=== PATIENT | female | born 1945 | race Hispanic/Latino ===

== ENCOUNTER 2016-11-15 09:33 | Emergency (ER) | payer OTHER ==
[~2016-11-15] VITALS: Ht 147.3 cm; Wt 78.1 kg
[~2016-11-15 09:33] MED LIST: ADVAIR 250/501 DISK IH; ATENOLOL100 MG PO; CITALOPRAM HBR20 MG PO; CLARITIN10 MG PO; CLIMARA0.1 MG PO; COUMADIN,JANTOVE1 MG PO; COUMADIN2.5 MG PO; COZAAR100 MG PO; CRESTOR20 MG PO; ESTRADIOL1 MG PO; FLONASE16 G1 BOTH NARES; GABAPENTIN300 M1 PO; HCTZ; HYDROCHLOROTH12.5 M2 PO; HYDROXYZINE HCL25 MG PO; HYZAAR 100-11 TABLET PO; KLOR-CON 1010 ME1 PO; LEVOTHROID50 MCG PO; LEVOTHYROXINE25 MCG PO; LYRICA50 MG PO; MECLIZINE HCL25 MG PO; MELOXICAM7.5 MG PO; MIRALAX17 GM PO; NASONEX17 GM NS; NEXIUM40 MG PO; OMEPRAZOLE40 M1 PO; POTASSIUM CHLO10 ME3 PO; SERTRALINE HCL100 MG PO; SINGULAIR10 MG PO; SPIRIVA1 INHALATI IH; TRADJENTA5 MG PO; TRAMADOL HCL50 MG PO; ULTRAM50 MG PO; VALIUM5 MG PO; VENTOLIN HFA18 GM IH; VITAMIN D-32000 UNI2 PO; VITAMIN D50000 UNI1 PO; ZETIA10 MG PO; predniSONE PO
[2016-11-15 10:40] LABS: HEMATOCRIT 38.1 % (36.0-46.0); MCH 29.6 PG (29.0-34.0); MCHC 34.1 G/DL (30.0-36.0); MCV 86.8 FL (83-99); MEAN PLAT.VOLUME 10.8 uM^3 (9.5-12.4); PLATELET COUNT 188 K/uL (156-360); RBC DIS.WIDTH-CV 14.1 % (11.8-14.6); RED BLOOD COUNT 4.39 M/uL (3.80-5.20); WHITE BLOOD COUNT 8.8 K/uL (4.1-10.2)
[2016-11-15 10:53] LABS: CHLORIDE 100 mEq/L (99-109); POTASSIUM 3.8 mEq/L (3.7-5.4); SODIUM 136 mEq/L (136-147)
[2016-11-15 10:54] LABS: GLUCOSE 116 mg/dL (70-99)
[2016-11-15 10:56] LABS: ANION GAP 8 MEQ/L (2-14)
[2016-11-15 10:58] LABS: GFR ESTIMATE (CALCULATED) 36 mL/min/
[2016-11-15 10:59] LABS: UREA NITROGEN (BUN) 27 mg/dL (9-23)
[2016-11-15 11:41] LABS: ADD MIUA? YES; BILIRUBIN NEGATIVE; BLOOD NEGATIVE; GLUCOSE (STRIP) NEGATIVE; KETONES NEGATIVE; LEUKOCYTES SMALL; NITRITE NEGATIVE; PH, URINE 6.5 (5-8); PROTEIN (STRIP) 30; SPECIFIC GRAVITY 1.019 (1.000-1.030); UROBILINOGEN 0.2 MG/DL (0.2-1.0)
[2016-11-15 11:45] LABS: COLOR LT YELLOW ((YELLOW))
[2016-11-15 11:58] LABS: BACTERIA RARE /HPF; CASTS NONE SEEN /LPF; CRYSTALS NONE SEEN; EPITHELIAL CELLS RARE /HPF; MUCUS NONE SEEN /LPF; RED BLOOD CELLS NONE SEEN /HPF (0-5); UCUL ADDED? NO; WHITE BLOOD CELLS RARE /HPF (0-5)
[2016-11-15 12:15] LABS: TOTAL BILIRUBIN 0.4 mg/dL (0.0-1.0)
[2016-11-15 12:16] LABS: ALKALINE PHOSPHATASE 81 IU/L (3-129)
[2016-11-15 12:18] LABS: DIRECT BILIRUBIN 0.2 mg/dL (0.0-0.3)
[2016-11-15 12:19] LABS: LIPASE 95 U/L (1.0-51.0)
[2016-11-15 15:51] VITALS: BP 126/66
== END 2016-11-15 15:52 | disposition home or self-care (01) ==
LOC: EME 09:33
DX: R10.31 Right lower quadrant pain (principal); N28.9 Disorder of kidney and ureter, unspecified; E78.5 Hyperlipidemia, unspecified; I10 Essential (primary) hypertension; Z88.2 Allergy status to sulfonamides; Z88.6 Allergy status to analgesic agent
CPT/HCPCS: 71020; 74176; 80048; 80076; 81003; 83690; 85027; 99281; 99285; J7030